=== PATIENT | male | born 1950 | race Caucasian/White ===

== ENCOUNTER 2021-10-16 06:04 | Day surgery (SDC) | payer OTHER ==
[~2021-10-16] VITALS: Ht 177.8 cm; Wt 88.0 kg
[2021-10-16] MEDS ORDERED: KETOROLAC TROMETHAMINE 30 MG VIAL ONE (10:35)
[2021-10-16] MEDS ORDERED: ONDANSETRON HCL 4 MG/2 ML VIAL ONE (10:35)
[2021-10-16] MEDS ORDERED: fentaNYL CITRATE/PF 100 MCG/2 ML AMP ONE (10:35)
[2021-10-16] MEDS ORDERED: OXYMETAZOLINE HCL 0.05% NASAL SPRAY NS ONE (10:35)
[2021-10-16] MEDS ORDERED: NS 1000 ML IV.SOLN IV ONE (10:35)
[2021-10-16] MEDS ORDERED: ROCURONIUM BROMIDE 10 MG/ML (ZEMURON) ONE (10:35)
[2021-10-16] MEDS ORDERED: LIDOCAINE/EPI 1% 1:100000 20 ML VIAL INJ ONE (10:35)
[2021-10-16] MEDS ORDERED: ATROPINE SULFATE 0.4 MG/ML VIAL ONE (10:35)
[2021-10-16] MEDS ORDERED: SEVOFLURANE 15 MIN GAS INH ONE (10:35)
[2021-10-16] MEDS ORDERED: NS IRRIG SOLN 1000 ML IR ONE (10:35)
[2021-10-16] MEDS ORDERED: LABETALOL 100 MG/ 20ML VIAL IVP PRN (10:45)
[2021-10-16] MEDS ORDERED: hydrALAZINE HCL 20 MG/ML VIAL IVP PRN (10:45)
[2021-10-16] MEDS ORDERED: HYDROmorphone 1 MG/ML INJ. CARTRIDGE IVP PRN (10:45)
[2021-10-16] MEDS ORDERED: METOCLOPRAMIDE HCL 10 MG/2 ML VIAL IVP PRN (10:45)
[2021-10-16] MEDS ORDERED: LR 1,000 ML IV SCH (10:45)
[2021-10-16 13:56] VITALS: BP_SYST 120
== END 2021-10-16 13:30 | disposition home or self-care (01) ==
LOC: SDS 06:04
PROVIDERS: ATTEND Otolaryngology
DX: J34.2 Deviated nasal septum (principal); J34.3 Hypertrophy of nasal turbinates; I10 Essential (primary) hypertension; E03.9 Hypothyroidism, unspecified; Z88.0 Allergy status to penicillin; E78.5 Hyperlipidemia, unspecified; Z79.899 Other long term (current) drug therapy; Z20.822 Contact with and (suspected) exposure to COVID-19
CPT/HCPCS: 30140; 30520; 36415 ×2; 87426; 87635; J0461; J1885; J2405; J3010; J7030